=== PATIENT | male | born 1935 | race Caucasian/White ===

== ENCOUNTER → 2023-08-01 | Outpatient (CLI) | payer MEDICARE ==
[2023-08-01 12:57] LABS: CHOLESTEROL 118 mg/dL (<200); HDL CHOLESTEROL 51 mg/dL (29-71); LDL DIRECT 49 mg/dL (0-99); TRIGLYCERIDES 124 mg/dL (30-200)
== END | disposition home or self-care (01) ==
LOC: LAB 09:44
PROVIDERS: ATTEND Internal Medicine Cardiovascular Disease
DX: I10 Essential (primary) hypertension (principal)
CPT/HCPCS: 36415; 80061